=== PATIENT | male | born 1950 | race Two or more races ===

== ENCOUNTER 2022-07-16 09:05 | Outpatient (CLI) | payer OTHER | END 2022-07-16 09:10 | disposition home or self-care (01) | LOC: RAD 09:05 | PROVIDERS: ATTEND Orthopaedic Surgery | DX: Z01.818 Encounter for other preprocedural examination (principal) ==

== ENCOUNTER 2023-06-04 14:49 | Outpatient (CLI) | payer OTHER ==
[2023-06-09] MEDS ORDERED: METFORMIN (10:59)
[2023-06-09] MEDS ORDERED: LANTUS (11:00)
[2023-06-09] MEDS ORDERED: [UNRECOGNIZED DRUG - OTHER] (11:00)
[2023-06-09] MEDS ORDERED: HUMALOG (11:00)
[2023-06-09] MEDS ORDERED: METOPROLOL (11:02)
[2023-06-09] MEDS ORDERED: SYNTHROI (11:02)
[2023-06-09] MEDS ORDERED: LOSARTAN (11:02)
== END 2023-06-04 14:55 | disposition home or self-care (01) ==
LOC: RAD 14:49
PROVIDERS: ATTEND Orthopaedic Surgery
DX: M17.11 Unilateral primary osteoarthritis, right knee (principal)

== ENCOUNTER 2023-11-24 13:26 | Outpatient (CLI) | payer OTHER ==
[~2023-11-24 13:26] MED LIST: HUMALOG; HUMALOG100 UNIT/2; INSULIN GL100 UNIT/3; INSULIN LI100 UNIT/2; LANTUS; LOSARTAN; METFORMIN; METFORMIN HCL1000 M3; METOPROLOL; METOPROLOL SUCC50 MG; SIMVASTATIN40 MG; SYNTHROI; SYNTHROID100 MCG; VALSARTAN-HCTZ1 EAC1; XARELTO10 MG PO; [UNRECOGNIZED DRUG - OTHER]
== END 2023-11-24 13:34 | disposition home or self-care (01) ==
LOC: RAD 13:26
DX: M17.0 Bilateral primary osteoarthritis of knee (principal); Z96.651 Presence of right artificial knee joint